=== PATIENT | female | born 1975 | race Two or more races ===

== ENCOUNTER 2017-07-25 08:32 | Outpatient (CLI) | payer OTHER | END 2017-07-25 09:23 | disposition home or self-care (01) | LOC: MAMO-SONO 08:32 | DX: N60.11 Diffuse cystic mastopathy of right breast (principal); Z12.31 Encounter for screening mammogram for malignant neoplasm of breast ==

== ENCOUNTER 2017-11-06 12:00 | Day surgery (SDC) | payer OTHER ==
[~2017-11-06] VITALS: Ht 157.5 cm; Wt 81.6 kg
[~2017-11-06 12:00] MED LIST: SYNTHROID50 MCG PO
== END 2017-11-06 18:10 | disposition home or self-care (01) ==
LOC: CIR.AMB 12:00
DX: C50.512 Malignant neoplasm of lower-outer quadrant of left female breast (principal); N62 Hypertrophy of breast

== ENCOUNTER 2017-11-29 09:24 | Outpatient (CLI) | payer OTHER | END 2017-11-29 15:58 | disposition home or self-care (01) | LOC: SONOGRAMA 09:24 | DX: C50.512 Malignant neoplasm of lower-outer quadrant of left female breast (principal); E04.8 Other specified nontoxic goiter ==

== ENCOUNTER 2018-09-24 07:55 | Outpatient (CLI) | payer OTHER | END 2018-09-24 09:03 | disposition home or self-care (01) | LOC: MAMO-SONO 07:55 | DX: M25.512 Pain in left shoulder (principal); C50.512 Malignant neoplasm of lower-outer quadrant of left female breast; E04.8 Other specified nontoxic goiter ==

== ENCOUNTER 2019-09-10 12:00 | Outpatient (CLI) | payer OTHER | END 2019-09-10 15:43 | disposition home or self-care (01) | LOC: MAMO-SONO 12:00 | DX: C50.412 Malignant neoplasm of upper-outer quadrant of left female breast (principal); N60.11 Diffuse cystic mastopathy of right breast; N60.12 Diffuse cystic mastopathy of left breast; Z12.31 Encounter for screening mammogram for malignant neoplasm of breast; Z87.898 Personal history of other specified conditions ==

== ENCOUNTER → 2020-11-05 | Outpatient (CLI) | payer OTHER | END | disposition home or self-care (01) | LOC: MAMO-SONO 15:09 → EDBD 15:09 | DX: C50.512 Malignant neoplasm of lower-outer quadrant of left female breast (principal) ==

== ENCOUNTER 2021-03-09 10:57 | Emergency (ER) | payer OTHER ==
[~2021-03-09] VITALS: Ht 157.5 cm; Wt 79.4 kg
== END 2021-03-09 18:24 | disposition home or self-care (01) ==
LOC: ER 10:57
DX: R42 Dizziness and giddiness (principal)

== ENCOUNTER 2021-05-14 07:51 | Outpatient (CLI) | payer OTHER | END 2021-05-14 08:00 | disposition home or self-care (01) | LOC: SONOGRAMA 07:51 | PROVIDERS: ATTEND Internal Medicine Endocrinology, Diabetes & Metabolism | DX: E03.8 Other specified hypothyroidism (principal); E04.8 Other specified nontoxic goiter ==

== ENCOUNTER 2021-08-20 11:41 | Outpatient (CLI) | payer OTHER | END 2021-08-20 11:57 | disposition home or self-care (01) | LOC: RAD 11:41 | PROVIDERS: ATTEND Internal Medicine Cardiovascular Disease | DX: J98.4 Other disorders of lung (principal) ==

== ENCOUNTER 2021-11-10 08:59 | Outpatient (CLI) | payer OTHER | END 2021-11-10 09:10 | disposition home or self-care (01) | LOC: NUCLEAR 08:59 | PROVIDERS: ATTEND Internal Medicine Gastroenterology | DX: R10.13 Epigastric pain (principal) | CPT/HCPCS: 78227; A9510 ==

== ENCOUNTER 2021-11-15 07:51 | Outpatient (CLI) | payer OTHER | END 2021-11-15 08:15 | disposition home or self-care (01) | LOC: MAMO-SONO 07:51 | PROVIDERS: ATTEND Internal Medicine | DX: C50.512 Malignant neoplasm of lower-outer quadrant of left female breast (principal) ==

== ENCOUNTER 2022-01-11 08:40 | Outpatient (CLI) | payer OTHER | END 2022-01-11 09:10 | disposition home or self-care (01) | LOC: SONOGRAMA 08:40 | PROVIDERS: ATTEND Internal Medicine Gastroenterology | DX: R10.13 Epigastric pain (principal) ==

== ENCOUNTER → 2022-02-11 | Outpatient (CLI) | payer OTHER | END | disposition home or self-care (01) | LOC: NUCLEAR 12-17 07:00 | PROVIDERS: ATTEND Internal Medicine Cardiovascular Disease | DX: R07.89 Other chest pain (principal) ==

== ENCOUNTER 2022-11-10 07:32 | Outpatient (CLI) | payer OTHER | END 2022-11-10 13:42 | disposition home or self-care (01) | LOC: SONOGRAMA 07:32 | PROVIDERS: ATTEND Internal Medicine Endocrinology, Diabetes & Metabolism | DX: E04.8 Other specified nontoxic goiter (principal) ==

== ENCOUNTER 2022-12-08 09:40 | Outpatient (CLI) | payer OTHER | END 2022-12-08 10:10 | disposition home or self-care (01) | LOC: SONOGRAMA 09:40 | DX: C50.812 Malignant neoplasm of overlapping sites of left female breast (principal); Z12.72 Encounter for screening for malignant neoplasm of vagina ==

== ENCOUNTER 2023-04-20 08:12 | Outpatient (CLI) | payer OTHER | END 2023-04-20 08:41 | disposition home or self-care (01) | LOC: MAMO-SONO 08:12 | PROVIDERS: ATTEND Obstetrics & Gynecology | DX: N60.11 Diffuse cystic mastopathy of right breast (principal); Z12.31 Encounter for screening mammogram for malignant neoplasm of breast ==

== ENCOUNTER 2023-06-08 07:26 | Outpatient (CLI) | payer OTHER | END 2023-06-08 07:29 | disposition home or self-care (01) | LOC: NUCLEAR 07:26 | DX: C50.512 Malignant neoplasm of lower-outer quadrant of left female breast (principal); G89.3 Neoplasm related pain (acute) (chronic) ==

== ENCOUNTER 2023-07-25 07:55 | Outpatient (CLI) | payer OTHER | END 2023-07-25 14:49 | disposition home or self-care (01) | LOC: SONOGRAMA 07:55 | DX: C50.512 Malignant neoplasm of lower-outer quadrant of left female breast (principal); Z79.810 Long term (current) use of selective estrogen receptor modulators (SERMs) ==

== ENCOUNTER → 2024-03-12 08:50 | Outpatient (CLI) | payer OTHER | END | disposition home or self-care (01) | LOC: MAMO-SONO 08:50 | DX: C50.812 Malignant neoplasm of overlapping sites of left female breast (principal) ==

== ENCOUNTER 2024-09-05 09:16 | Outpatient (CLI) | payer OTHER | END 2024-09-05 09:33 | disposition home or self-care (01) | LOC: SONOGRAMA 09:16 | DX: E04.8 Other specified nontoxic goiter (principal) ==

== ENCOUNTER 2024-12-05 10:09 | Outpatient (CLI) | payer OTHER | END 2024-12-05 10:20 | disposition home or self-care (01) | LOC: RAD 10:09 | DX: M46.1 Sacroiliitis, not elsewhere classified (principal); M13.0 Polyarthritis, unspecified; R05.9 Cough, unspecified ==

== ENCOUNTER → 2025-03-12 | Outpatient (CLI) | payer OTHER | END | disposition home or self-care (01) | LOC: SONOGRAMA 13:57 | DX: M75.41 Impingement syndrome of right shoulder (principal) ==

== ENCOUNTER 2025-06-05 09:28 | Outpatient (CLI) | payer OTHER | END 2025-06-11 13:59 | disposition home or self-care (01) | LOC: MAMO-SONO 09:28 | DX: C50.819 Malignant neoplasm of overlapping sites of unspecified female breast (principal); N93.9 Abnormal uterine and vaginal bleeding, unspecified; E04.9 Nontoxic goiter, unspecified; E03.9 Hypothyroidism, unspecified; M25.511 Pain in right shoulder ==